=== PATIENT | female | born 1990 | race Caucasian/White ===

== ENCOUNTER 2018-03-22 03:19 | Observation (INO) | payer OTHER ==
[~2018-03-22] VITALS: Ht 154.9 cm; Wt 105.7 kg
[2018-03-22] MEDS ORDERED: HYDROCODONE/ACETAMINOPHEN 5-325 MG TABLET PO ONE (12:00)
[2018-03-22] MEDS ORDERED: HYDROCODONE/ACETAMINOPHEN 5-325 MG TABLET ONE (12:20)
[2018-03-23] MEDS ORDERED: PREN1TAB80 PO (11:09)
== END 2018-03-22 12:30 | disposition home or self-care (01) ==
LOC: 4S 03:19
PROVIDERS: ADMIT Obstetrics & Gynecology; ATTEND Obstetrics & Gynecology
DX: O62.9 Abnormality of forces of labor, unspecified (principal); O48.0 Post-term pregnancy; Z3A.40 40 weeks gestation of pregnancy
CPT/HCPCS: 81002; G0378

== ENCOUNTER 2018-03-23 10:22 | Inpatient (IN) | payer OTHER ==
[~2018-03-23] VITALS: Ht 155 cm; Wt 105.2 kg
[2018-03-23] MEDS ORDERED: RINGERS SOLUTION,LACTATED 1,000 ML IV ONE ×2 (10:58→12:08)
[2018-03-23] MEDS ORDERED: PREN1TAB80 PO (11:09)
[2018-03-23] MEDS ORDERED: OXYTOCIN 30 UNITS/LACT RINGERS 500 ML IV PRN (12:10)
[2018-03-23] MEDS ORDERED: OXYTOCIN 30 UNITS/LACT RINGERS 500 ML IV ONE (12:10)
[2018-03-23] MEDS ORDERED: RINGERS SOLUTION,LACTATED 1,000 ML IV PRN (12:10)
[2018-03-23] MEDS ORDERED: METOCLOPRAMIDE HCL 5 MG/ML 2 ML VIAL IVP PRN (12:15)
[2018-03-23] MEDS ORDERED: CITRIC ACID/SODIUM CITRATE 30 ML SOLUTION UDCUP PO PRN (12:15)
[2018-03-23] MEDS ORDERED: LIDOCAINE/PF 1% 30 ML VIAL INJ PRN (12:15)
[2018-03-23] MEDS ORDERED: FentaNYL CITRATE-PF 100 MCG/2 ML VIAL IVP PRN (12:15)
[2018-03-23] MEDS: RINGERS SOLUTION,LACTATED 1,000 ML IV SCH ×3 (12:20→23:04)
[2018-03-23] MEDS ORDERED: LIDOCAINE/PF 2% 5 ML VIAL ONE (12:47)
[2018-03-23] MEDS ORDERED: ROPIVACAINE HCL/PF 0.2% 100 ML ED ONE (12:47)
[2018-03-23 13:37] LABS: BASOPHILS % (AUTO) 0.3 % (0.0-2.0); EOSINOPHILS % (AUTO) 0.4 % (1.0-6.0); HEMATOCRIT 34.3 % (36-46); HEMOGLOBIN 11.3 g/dL (12.0-16.0); LYMPHOCYTES # (AUTO) 2.1 K/uL (1.0-4.8); MEAN CORPUSCULAR HEMOGLOBIN 26.2 pg (26.0-34.0); MEAN CORPUSCULAR VOLUME 80 fL (80-100); MONOCYTES # (AUTO) 0.5 K/uL (0.1-1.0); NEUTROPHILS # (AUTO) 7.3 K/uL (1.8-7.7); NEUTROPHILS % (AUTO) 73.3 % (40.0-70.0); PLATELET COUNT (AUTO)-OB 201 K/uL (150-450); RED BLOOD CELL COUNT(AUTO) 4.32 MIL/uL (4.00-5.20)
[2018-03-23] MEDS ORDERED: ROPIVACAINE HCL/PF 0.2% 100 ML ED PRN (14:30)
[2018-03-23] MEDS ORDERED: ONDANSETRON HCL 4 MG/2 ML VIAL IVP PRN (14:30)
[2018-03-23] MEDS ORDERED: NALBUPHINE HCL 10 MG/ML VIAL IVP PRN (14:30)
[2018-03-23] MEDS ORDERED: DiphenhydrAMINE HCL 50 MG/ML VIAL IVP PRN (14:30)
[2018-03-23] MEDS ORDERED: OXYGEN THERAPY IH SCH (20:00)
[2018-03-24] MEDS ORDERED: MISOPROSTOL 100 MCG TABLET ONE ×2 (05:08)
[2018-03-24] MEDS ORDERED: MEPERIDINE-PF 25 MG/ML VIAL ONE (05:10)
[2018-03-24] MEDS ORDERED: ACETAMINOPHEN 325 MG TABLET ONE (05:10)
[2018-03-24] MEDS ORDERED: ACETAMINOPHEN 650 MG/20.3 ML SOLUTION UDCUP PO ONE (05:15)
[2018-03-24] MEDS ORDERED: MEPERIDINE-PF 50 MG/ML SYRINGE IM ONE (05:15)
[2018-03-24] MEDS ORDERED: MISOPROSTOL 100 MCG TABLET PO ONE (05:15)
[2018-03-24] MEDS ORDERED: OXYTOCIN 30 UNITS/LACT RINGERS 500 ML IV ONE (05:52)
[2018-03-24] MEDS ORDERED: LANOLIN 7 GM OINTMENT TP PRN (06:00)
[2018-03-24] MEDS ORDERED: GLYCERIN/WITCH HAZEL LEAF 40 PADS JAR TP PRN (06:00)
[2018-03-24] MEDS ORDERED: OxyCODONE HCL/ACETAMINOPHEN 5-325 MG TABLET PO PRN ×2 (06:00)
[2018-03-24] MEDS ORDERED: BENZOCAINE 20%/MENTHOL 56 GM SPRAY CANISTER TP PRN (06:00)
[2018-03-24] MEDS: RINGERS SOLUTION,LACTATED 1,000 ML IV SCH (06:04)
[2018-03-24] MEDS: MAGNESIUM HYDROXIDE SUSPENSION 30 ML UDCUP PO PRN ×2 (09:13→20:17)
[2018-03-24] MEDS: IBUPROFEN 800 MG TABLET PO PRN ×2 (12:20→20:18)
[2018-03-24 13:59] LABS: GLUCOMETER DEV NAME(LOC) 4S.; GLUCOSE,POINT OF CARE 88 MG/DL (70-110)
[2018-03-25 06:11] LABS: BASOPHILS % (AUTO) 0.2 % (0.0-2.0); EOSINOPHILS % (AUTO) 1.1 % (1.0-6.0); HEMATOCRIT 31.8 % (36-46); HEMOGLOBIN 10.3 g/dL (12.0-16.0); LYMPHOCYTES # (AUTO) 2.8 K/uL (1.0-4.8); LYMPHOCYTES % (AUTO) 18.6 % (22.0-44.0); MEAN CORPUSCULAR HEMOGLOBIN 25.5 pg (26.0-34.0); MEAN CORPUSCULAR HGB CONC 32.3 G/dL (31.0-37.0); MEAN CORPUSCULAR VOLUME 79 fL (80-100); MONOCYTES # (AUTO) 0.6 K/uL (0.1-1.0); MONOCYTES % (AUTO) 4.3 % (2.0-9.0); NEUTROPHILS # (AUTO) 11.3 K/uL (1.8-7.7); NEUTROPHILS % (AUTO) 75.8 % (40.0-70.0); PLATELET COUNT (AUTO)-OB 166 K/uL (150-450); RED BLOOD CELL COUNT(AUTO) 4.03 MIL/uL (4.00-5.20)
[2018-03-25] MEDS: IBUPROFEN 800 MG TABLET PO PRN (06:26)
[2018-03-25] MEDS ORDERED: DSS100 PO (09:15)
[2018-03-25] MEDS ORDERED: IBUP-2071 PO (09:15)
[2018-03-25] MEDS ORDERED: FERR-89 PO (09:16)
== END 2018-03-25 10:15 | disposition home or self-care (01) | DRG 807 ==
LOC: 4S 10:22 → OBSVTOIN 10:22
PROVIDERS: ADMIT Obstetrics & Gynecology; ATTEND Obstetrics & Gynecology
PROC: 0HQ9XZZ Repair Perineum Skin, External Approach (ICD-10-PCS; principal; 2018-03-24)
PROC: 10E0XZZ Delivery of Products of Conception, External Approach (ICD-10-PCS; 2018-03-24)
PROC: 3E0R3BZ Introduction of Anesthetic Agent into Spinal Canal, Percutaneous Approach (ICD-10-PCS; 2018-03-24)
PROC: 00HU33Z Insertion of Infusion Device into Spinal Canal, Percutaneous Approach (ICD-10-PCS; 2018-03-24)
DX: O69.81X0 Labor and delivery complicated by cord around neck, without compression, not applicable or unspecified (principal); Z37.0 Single live birth; O77.0 Labor and delivery complicated by meconium in amniotic fluid; O70.0 First degree perineal laceration during delivery; Z3A.40 40 weeks gestation of pregnancy
CPT/HCPCS: 86850; 86900; 86901; 88307; J2175; J2405; J2590; J2795; J3490; J7120